=== PATIENT | female | born 1970 | race Caucasian/White ===

== ENCOUNTER 2016-09-14 14:37 | Inpatient (IN) | payer OTHER ==
[~2016-09-14] VITALS: Ht 167.6 cm; Wt 101.6 kg
[2016-09-14 14:42] VITALS: BP 186/98; PULSE 88; RESP 12; TEMP 97.7; O2SAT 97
--- NOTE | 2016-09-14 16:07 | RADRPT ---
EXAM DATE/TIME: 09/14/2016 15:50 [place] COMPARISON: No previous studies available for comparison. INDICATIONS : Chest pains mid sternal for an hour (today) with left arm numbness and tingling. MEDICAL HISTORY : None. SURGICAL HISTORY : None. ENCOUNTER: Initial ACUITY: 1 day PAIN SCORE: 10/10 LOCATION: Bilateral chest FINDINGS: Portable AP view of the chest demonstrates a normal-sized cardiac silhouette. No effusion, consolidat ion, or pneumothorax is visualized. The bones and soft tissues demonstrate no acute abnormality. CONCLUSION: No acute cardiopulmonary abnormality is identified. Renan Yen MD on September 14, 2016 at 16:05 Board Certified Radiologist. This report was verified electronically.
[2016-09-14 16:32] LABS: AUTOMATED NEUTROPHIL # 8.7 TH/MM3 (1.8-7.7); BASOPHIL # 0.1 TH/MM3 (0-0.2); BASOPHIL % 0.6 % (0.0-2.0); EOSINOPHIL # 0.3 TH/MM3 (0-0.4); EOSINOPHIL % 2.8 % (0.0-4.0); HEMATOCRIT 37.9 % (35.0-46.0); HEMO FLAGS DIFF FINAL; LYMPH % 20.8 % (9.0-44.0); LYMPHOCYTE # 2.6 TH/MM3 (1.0-4.8); MEAN CELL VOLUME 80.6 FL (80.0-100.0); MEAN CORPUSCULAR HEMOGLOBIN 26.6 PG (27.0-34.0); MONO % 6.6 % (0.0-8.0); NEUT % 69.2 % (16.0-70.0); PLATELET COUNT 323 TH/MM3 (150-450); RED CELL DISTRIBUTION WIDTH 14.6 % (11.6-17.2); WHITE BLOOD COUNT 12.6 TH/MM3 (4.0-11.0)
[2016-09-14 17:07] LABS: ANION GAP 6 MEQ/L (5-15); BICARBONATE 28.7 MEQ/L (21.0-32.0); BLOOD UREA NITROGEN 14 MG/DL (7-18); CHLORIDE 102 MEQ/L (98-107); GLOMERULAR FILTRATION RATE 74 ML/MIN (>89); SODIUM (NA) 137 MEQ/L (136-145)
[2016-09-14 17:16] LABS: CREATINE KINASE 155 U/L (26-192)
[2016-09-14 17:17] LABS: POTASSIUM 3.8 MEQ/L (3.5-5.1)
[2016-09-14 18:32] VITALS: BP 188/87; PULSE 87; RESP 16; O2SAT 98
--- NOTE | 2016-09-14 18:37 | PD ---
HPI Chief Complaint: Chest Pain Time Seen by Provider: 18:37 Travel History International Travel<30 days: No Contact w/Intl Traveler<30days: No Traveled to known affect area: No History of Present Illness HPI 46-year-old female with no significant medical history, presents to emergency department for evaluation of substernal chest pain, acute onset, sharp, cramp- like, tight feeling greater on the left than right with associated left arm numbness. This occurred following lunch with her boss when she got up to walk. She states that there was no nausea or vomiting associated with it. She did not experience any diaphoresis. She felt slightly lightheaded and like she did not want to walk anywhere. Currently she is pain-free. Denies any shortness of breath. No recent illnesses, fever, or chills. Patient states she is typically not hypertensive however her blood pressure has been elevated here in the emergency department. She has no other symptoms reported this time. PFSH Past Medical History Medical History: Denies Significant Hx ?: Not LMP: 09/06/16 Past Surgical History Surgical History: No Previous Surgery Social History Alcohol Use: No Tobacco Use: No Substance Use: No Allergies-Medications (Allergen,Severity, Reaction): Coded Allergies: No Known Allergies (Unverified , 09/14/16) Reported Meds & Prescriptions Reported Meds & Active Scripts Active No Active Prescriptions or Reported Medications Review of Systems Except as stated in HPI: all other systems reviewed are Neg Physical Exam Narrative GENERAL: Well-nourished, well-developed female patient, lying in bed, in no acute distress SKIN: Warm and dry. HEAD: Normocephalic. Atraumatic EYES: No scleral icterus. No injection or drainage. NECK: Supple, trachea midline. No JVD or lymphadenopathy. CARDIOVASCULAR: Regular rate and rhythm without murmurs, gallops, or rubs. RESPIRATORY: Breath sounds equal bilaterally. No accessory muscle use. Abdomen: Abdomen soft, non-tender, nondistended. Positive bowel sounds. No hepato-splenomegaly, or palpable masses. No guarding. MUSCULOSKELETAL: No cyanosis, or edema. Distal pulses are palpable. Cap refill is within normal limits. BACK: Nontender without obvious deformity. No CVA tenderness. Data Data Last Documented VS Vital Signs Date Time Temp Pulse Resp B/P Pulse Ox O2 Delivery O2 Flow Rate FiO2 09/14/16 18:32 87 16 188/87 98 Room Air 09/14/16 18:32 2 09/14/16 14:42 97.7 Orders Electrocardiogram (09/14/16 15:24) Complete Blood Count With Diff (09/14/16 15:24) Basic Metabolic Panel (Bmp) (09/14/16 15:24) Ckmb (Isoenzyme) Profile (09/14/16 15:24) Troponin I (09/14/16 15:24) Chest, Single Ap (09/14/16 15:24) Iv Access Insert/Monitor (09/14/16 15:24) Ecg Monitoring (09/14/16 15:24) Oxygen Administration (09/14/16 15:24) Oximetry (09/14/16 15:24) CKMB (09/14/16 15:50) CKMB% (09/14/16 15:50) Aspirin Chew (Aspirin Chew) (09/14/16 18:45) Electrocardiogram (09/14/16 ) Troponin I (09/14/16 18:37) Ckmb (Isoenzyme) Profile (09/14/16 18:37) Admit To Inpatient (09/14/16 ) Vital Signs (Adult) Q4H (09/14/16 18:43) Bedside Glucose GENE.AC&HS (09/14/16 18:43) ^ Child Care Development Specialist / Telemetry .CONTINUOUS (09/14/16 18:43) Intake + Output GENE.QSHIFT (09/14/16 18:43) Diet Heart Healthy (09/14/16 Dinner) Sodium Chloride 0.9% Flush (Ns Flush) (09/14/16 18:45) Sodium Chloride 0.9% Flush (Ns Flush) (09/14/16 21:00) Acetaminophen (Tylenol) (09/14/16 18:45) Ondansetron Inj (Zofran Inj) (09/14/16 18:45) Prochlorperazine Supp (Compazine Supp) (09/14/16 18:45) Bisacodyl Supp (Dulcolax Supp) (09/14/16 18:45) Magnesium Hydroxide Liq (Milk Of Magnesi (09/14/16 18:45) Sennosides (Senokot) (09/14/16 18:45) Basic Metabolic Panel (Bmp) (09/15/16 06:00) Complete Blood Count With Diff (09/15/16 06:00) Troponin I (09/15/16 00:43) Electrocardiogram (09/14/16 19:00) Resp Oxygen Anupam C Titrat 1-4 L (09/14/16 ) Pt Request For Service (09/14/16 18:43) Case Management Consult (09/14/16 18:43) Scd Bilateral/Knee High GENE.BID (09/14/16 18:43) Ebenezer Bilateral/Knee High GENE.QSHIFT (09/14/16 18:43) Inpatient Certification (09/14/16 ) Heparin Infusion GENE.Q1H (09/14/16 18:49) Heparin Inj (Heparin Inj) (09/14/16 19:00) Heparin Inj (Heparin Inj) (09/15/16 01:00) Heparin Inj (Heparin Inj) (09/15/16 01:00) Heparin-D5w Inj (Heparin-D5w Inj) (09/14/16 19:00) Act Partial Throm Time (Ptt) (09/14/16 18:49) Prothrombin Time / Inr (Pt) (09/14/16 18:49) Cbc No Diff, Includes Plts (09/14/16 18:49) Cbc No Diff, Includes Plts (09/17/16 06:00) Act Partial Throm Time (Ptt) (09/15/16 01:49) Occult Blood (Hemoccult) Stool (09/14/16 18:49) Admit Order (Ed Use Only) (09/14/16 18:52) CKMB (09/14/16 18:40) CKMB% (09/14/16 18:40) Labs Laboratory Tests Test 09/14/16 09/14/16 15:50 18:40 White Blood Count 12.6 TH/MM3 Red Blood Count 4.70 MIL/MM3 Hemoglobin 12.5 GM/DL Hematocrit 37.9 % Mean Corpuscular Volume 80.6 FL Mean Corpuscular Hemoglobin 26.6 PG Mean Corpuscular Hemoglobin 33.0 % Concent Red Cell Distribution Width 14.6 % Platelet Count 323 TH/MM3 Mean Platelet Volume 9.9 FL Neutrophils (%) (Auto) 69.2 % Lymphocytes (%) (Auto) 20.8 % Monocytes (%) (Auto) 6.6 % Eosinophils (%) (Auto) 2.8 % Basophils (%) (Auto) 0.6 % Neutrophils # (Auto) 8.7 TH/MM3 Lymphocytes # (Auto) 2.6 TH/MM3 Monocytes # (Auto) 0.8 TH/MM3 Eosinophils # (Auto) 0.3 TH/MM3 Basophils # (Auto) 0.1 TH/MM3 CBC Comment DIFF FINAL Differential Comment Prothrombin Time 10.6 SEC Prothromb Time International 1.0 RATIO Ratio Activated Partial 26.2 SEC Thromboplast Time Sodium Level 137 MEQ/L Potassium Level 3.8 MEQ/L Chloride Level 102 MEQ/L Carbon Dioxide Level 28.7 MEQ/L Anion Gap 6 MEQ/L Blood Urea Nitrogen 14 MG/DL Creatinine 0.83 MG/DL Estimat Glomerular Filtration 74 ML/MIN Rate Random Glucose 86 MG/DL Calcium Level 9.0 MG/DL Total Creatine Kinase 155 U/L 195 U/L Creatine Kinase MB 2.0 NG/ML 5.2 NG/ML Troponin I 0.25 NG/ML 1.93 NG/ML Creatine Kinase MB % 2.7 % MDM Medical Decision Making Medical Screen Exam Complete: Yes Emergency Medical Condition: Yes Medical Record Reviewed: Yes Differential Diagnosis ACS, NSTEMI versus STEMI versus pleuritic pain versus costochondritis versus chest wall pain Narrative Course 46-year-old female presents to emergency department for evaluation of chest pain. At this time at 1830 at the time of my assessment, patient is pain-free. Chest pain protocol was initiated and the triage area. EKG was reviewed initially at [address] elevation or depression. It was normal sinus rhythm. CBC resulted mild leukocytosis of 12.6. BMP is without acute concern. Troponin is elevated 0.25. This resulted in the patient being moved to a medical bed. Repeat EKG at 1836 is reviewed by my attending physician Dr. Hui. It is also normal sinus rhythm with no significant ST elevation or depression. Repeat troponin and CK-MB is ordered. A call has been placed to medical team for admission. I spoke with Dr. Wall. Pt will be started on heparin drip and admitted to service. 1939 Repeat troponin is 1.[address] Smith. She is aware. Pt remains hypertensive, but otherwise pain free. Diagnosis Primary Impression: NSTEMI (non-ST elevated myocardial infarction) Additional Impression: Hypertension Qualified Code: I10 - Essential hypertension Admitting Information Admitting Physician Requests: Admit Scripts No Active Prescriptions or Reported Meds Condition: Katya Zuñiga Sep 14, 2016 18:37
[2016-09-14] MEDS ORDERED: SENNOSIDES 8.6 MG TAB PO PRN (18:45)
[2016-09-14] MEDS ORDERED: PROCHLORPERAZINE 25 MG SUPP PR PRN (18:45)
[2016-09-14] MEDS ORDERED: ASPIRIN 81 MG CHEW TAB CHEW ONE (18:45)
[2016-09-14] MEDS ORDERED: BISACODYL 10 MG SUPP PR PRN (18:45)
[2016-09-14] MEDS ORDERED: MAGNESIUM HYDROXIDE SUSP 30 ML CUP PO PRN (18:45)
[2016-09-14] MEDS ORDERED: SODIUM CHLORIDE 0.9% FLUSH 5 ML FLUSH FLUSH PRN (18:45)
[2016-09-14] MEDS ORDERED: ACETAMINOPHEN 325 MG TAB PO PRN (18:45)
[2016-09-14] MEDS ORDERED: ONDANSETRON HCL 4 MG/2 ML VIAL IVP PRN (18:45)
[2016-09-14] MEDS ORDERED: HEPARIN-D5W INJ 250 ML IV SCH (19:00)
[2016-09-14] MEDS ORDERED: HEPARIN SODIUM - IV 10,000 UNITS/10 ML VIAL IV ONE (19:00)
[2016-09-14] MEDS ORDERED: METOPROLOL TARTRATE 25 MG TAB PO ONE (19:00)
[2016-09-14 19:06] LABS: APTT (PATIENT) 26.2 SEC (24.3-30.1); PROTHROMBIN TIME - PATIENT 10.6 SEC (9.8-11.6)
[2016-09-14 19:39] LABS: CKMB 5.2 NG/ML (0.5-3.6)
[2016-09-14 19:59] VITALS: BP 198/92; PULSE 82; RESP 16; O2SAT 98
[2016-09-14 20:01] LABS: MEAN CELL VOLUME 80.8 FL (80.0-100.0); MEAN CORPUSCULAR HGB CONC 33.4 % (32.0-36.0); PLATELET COUNT 340 TH/MM3 (150-450); RED BLOOD COUNT 4.83 MIL/MM3 (4.00-5.30); RED CELL DISTRIBUTION WIDTH 14.7 % (11.6-17.2); REVIEW FLAG FINAL; WHITE BLOOD COUNT 12.1 TH/MM3 (4.0-11.0)
[2016-09-14 20:12] LABS: APTT (PATIENT) 25.9 SEC (24.3-30.1)
[2016-09-14 20:20] VITALS: BP 165/79
[2016-09-14] MEDS: SODIUM CHLORIDE 0.9% FLUSH 5 ML FLUSH FLUSH SCH (20:57)
[2016-09-15] VITALS (10 sets, daily range): BP systolic 138–189; BP diastolic 68–99; PULSE 70–90; RESP 16–18; TEMP 98.1–98.6; O2SAT 94–99
--- NOTE | 2016-09-15 00:33 | HHI.HP ---
[facility] Unknown Admission Diagnosis NSTEMI Diagnoses: (1) NSTEMI (non-ST elevated myocardial infarction) (2) Hypertensive urgency (3) Leukocytosis Chief Complaint: Chest pain and left arm pain and hand numbness Travel History International Travel<30 Days: No Contact w/Intl Traveler <30 Da: No Traveled to Known Affected Are: No History of Present Illness Mrs. Banda is a 46-year-old female with a history of restless leg syndrome and asthma with last exacerbation occurring in childhood who presents to emergency department for evaluation of substernal chest pain and left arm paresthesia. Initial Troponin I was 0.25, second Troponin I was 1.93. TCK - 195, CK-MB - 5.2 increased, CK-MB % within normal parameters - 2.7. Nonspecific T wave are noted in EKGs personally reviewed by me. The patient is admitted for NSTEMI. Patient reports that she experienced severe chest pain while sitting down and have lunch at work. It started as a dull ache in the center of her chest and got stronger and then eased off. Symptoms were accompanied by left arm pain and left hand numbness. She denies any nausea or vomiting, diaphoresis, or shortness of breath with this. She denies any recent fatigue, exertional shortness of breath, or or calf pain. Symptoms spontaneously resolved by the time she was in the emergency room without any intervention. She denies any family history of coronary artery disease. She denies any history of hypertension, diabetes mellitus, coronary artery disease, liver or kidney disease, thyroid disease, cancer, or seizures. She is a nonsmoker. . Review of Systems Constitutional: DENIES: Fatigue, Fever Respiratory: DENIES: Cough, Shortness of breath Cardiovascular: COMPLAINS OF: Chest pain, DENIES: Dyspnea on Exertion, Lower Extremity Edema Gastrointestinal: DENIES: Black stools, Bloody stools, Nausea, Vomiting Genitourinary: DENIES: Hematuria, Dysuria Musculoskeletal: DENIES: Muscle aches Neurologic: COMPLAINS OF: Paresthesias, DENIES: Localized weakness, Seizures Other All systems reviewed and are otherwise negative. . Past Family Social History Past Medical History Asthma with no symptoms since childhood Restless leg syndrome Gestation Hypertension . Past Surgical History C Section x 2 . Reported Medications Reported Meds & Active Scripts Active No Active Prescriptions or Reported Medications Allergies: Coded Allergies: No Known Allergies (Unverified , 09/14/16) Active Ordered Medications Current Medications Aspirin (Aspirin Chew) 162 mg ONCE ONCE CHEW Last administered on 09/14/16t 18 :43; Start 09/14/16 at 18:45; Stop 09/14/16 at 18:46; Status DC IV Flush (NS Flush) 2 ml UNSCH PRN FLUSH FLUSH AFTER USING IV ACCESS; Start 06/21 at 18:45 IV Flush (NS Flush) 2 ml BID FLUSH ; Start 09/14/16 at 21:00 Acetaminophen (Tylenol) 650 mg Q4H PRN PO TEMP > 100.4; Start 09/14/16 at 18:45 Ondansetron HCl (Zofran Inj) 4 mg Q6H PRN IVP NAUSEA OR VOMITING; Start at 18:45 Prochlorperazine (Compazine Supp) 25 mg Q12H PRN [place] NAUSEA OR VOMITING; Start 09/14/16 at 18:45 Bisacodyl (Dulcolax Supp) 10 mg DAILY PRN [place] CONSTIPATION; Start 09/14/16 at 18 :45 Magnesium Hydroxide (Milk Of Magnesia Liq) 30 ml Q12H PRN PO CONSTIPATION; Start 09/14/16 at 18:45 Sennosides (Senokot) 17.2 mg Q12H PRN PO CONSTIPATION; Start 09/14/16 at 18:45 Heparin Sodium (Porcine) (Heparin Inj) 4,000 units ONCE ONCE IV Last administered on 09/14/16t 19:23; Start 09/14/16 at 19:00; Stop 09/14/16 at 19:01 ; Status DC Heparin Sodium (Porcine) (Heparin Inj) 5,000 units UNSCH PRN IV APTT LESS THAN 25; Start 09/15/16 at 01:00 Heparin Sodium (Porcine) 2500 units 2,500 units UNSCH PRN IV APTT 25 TO 39; Start 09/15/16 at 01:00 Heparin Sodium/ Dextrose (Heparin-D5W Inj) 250 ml @ 0 mls/hr TITRATE IV Last administered on 09/14/16 19:24; Start 09/14/16 at 19:00 Metoprolol Tartrate (Lopressor) 25 mg ONCE ONCE PO Last administered on 19:23; Start 09/14/16 at 19:00; Stop 09/14/16 at 19:01; Status DC Aspirin (Ecotrin Ec) 325 mg DAILY PO ; Start 09/15/16 at 09:00 Family History Father with abdominal and thoracic aortic aneurysms Mother with hypertension Denies family history of CAD . 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 Physical Exam Vital Signs Vital Signs Date Time Temp Pulse Resp B/P Pulse Ox O2 Delivery O2 Flow Rate FiO2 09/14/16 20:20 165/79 09/14/16 19:59 82 16 198/92 98 Room Air 09/14/16 18:32 87 16 188/87 98 Room Air 09/14/16 18:32 97 Nasal Cannula 2 09/14/16 14:42 97.7 88 12 186/98 97 Room Air Physical Exam GENERAL: This is a well-developed female patient, in no apparent distress. SKIN: No rashes, ecchymoses or lesions. Cool and dry. HEAD: Atraumatic. Normocephalic. EYES: No scleral icterus. No injection or drainage. ENT: Nose without bleeding, purulent drainage. NECK: Trachea midline. No JVD or lymphadenopathy. CARDIOVASCULAR: Regular rate and rhythm without murmurs, gallops, or rubs. RESPIRATORY: Clear to auscultation. Breath sounds equal bilaterally. No wheezes , rales, or rhonchi. GASTROINTESTINAL: Abdomen soft, non-tender, nondistended. No guarding. MUSCULOSKELETAL: Extremities without clubbing, cyanosis, or edema. No calf tenderness. NEUROLOGICAL: Awake and alert. Motor and sensory grossly within normal limits. Normal speech. . Laboratory Laboratory Tests Test 09/14/16 09/14/16 09/14/16 15:50 18:40 19:00 White Blood Count 12.6 12.1 Red Blood Count 4.70 4.83 Hemoglobin 12.5 13.0 Hematocrit 37.9 39.0 Mean Corpuscular Volume 80.6 80.8 Mean Corpuscular Hemoglobin 26.6 27.0 Mean Corpuscular Hemoglobin 33.0 33.4 Concent Red Cell Distribution Width 14.6 14.7 Platelet Count 323 340 Mean Platelet Volume 9.9 9.8 Neutrophils (%) (Auto) 69.2 Lymphocytes (%) (Auto) 20.8 Monocytes (%) (Auto) 6.6 Eosinophils (%) (Auto) 2.8 Basophils (%) (Auto) 0.6 Neutrophils # (Auto) 8.7 Lymphocytes # (Auto) 2.6 Monocytes # (Auto) 0.8 Eosinophils # (Auto) 0.3 Basophils # (Auto) 0.1 CBC Comment DIFF FINAL Differential Comment Prothrombin Time 10.6 Prothromb Time International 1.0 Ratio Activated Partial 26.2 25.9 Thromboplast Time Sodium Level 137 Potassium Level 3.8 Chloride Level 102 Carbon Dioxide Level 28.7 Anion Gap 6 Blood Urea Nitrogen 14 Creatinine 0.83 Estimat Glomerular Filtration 74 Rate Random Glucose 86 Calcium Level 9.0 Total Creatine Kinase 155 195 Creatine Kinase MB 2.0 5.2 Troponin I 0.25 1.93 Creatine Kinase MB % 2.7 Result Diagram: 09/14/16 1900 09/14/16 1550 Imaging Last Impressions Chest X-Ray 09/14/16 1524 Signed Impressions: Service Date/Time: Wednesday, September 14, 2016 15:50 - CONCLUSION: No acute cardiopulmonary abnormality is identified. Renan Yen MD . Assessment and Plan Problem List: (1) NSTEMI (non-ST elevated myocardial infarction) ICD Code: I21.4 Status: Acute (2) Hypertensive urgency ICD Code: I16.0 Status: Acute (3) Leukocytosis ICD Code: D72.829 Status: Acute Assessment and Plan NSTEMI - Initial Troponin I 0.25, second troponin I 1.93 - TCK - 195, CK-MB - 5.2 increased, CK-MB % within normal parameters - 2.7 - Nonspecific twave changes - Heparin drip - Aspirin 325 mg p.o. daily Leukocytosis likely secondary to stress response - WBC is 12.6 on admission - recheck CBC in a.m. Hypertensive Urgency - Initial BP 186/98 decreased following Metoprolol 25 mg p.o. given in ER - will monitor trends in BP readings and treat as indicated DVT prophylaxis - currently on Heparin gtt Written by Dena Almodovar, acting as scribe for Dr. Smith on 09/15/16 at 00:33. The documentation accurately reflects the work performed [id number] by me on [id number] Discussed Condition With Dr. Wall and RN . Physician Certification 2 Midnight Certification Type: Admission for Inpatient Services Order for Inpatient Services The services are ordered in accordance with Medicare regulations or non- Medicare payer requirements, as applicable. In the case of services not specified as inpatient-only, they are appropriately provided as inpatient services in accordance with the 2-midnight benchmark. Estimated LOS (days): 3 days is the estimated time the patient will need to remain in the hospital, assuming treatment plan goals are met and no additional complications. Post-Hospital Plan: Home Dena Almodovar Sep 15, 2016 00:33 Erlinda Smith MD Sep 16, 2016 08:27
[2016-09-15 00:55] LABS: APTT (PATIENT) 28.9 SEC (24.3-30.1)
[2016-09-15] MEDS ORDERED: HEPARIN SODIUM - IV 10,000 UNITS/10 ML VIAL IV PRN ×2 (01:00)
[2016-09-15 05:54] LABS: AUTOMATED NEUTROPHIL # 5.9 TH/MM3 (1.8-7.7); BASOPHIL # 0.1 TH/MM3 (0-0.2); BASOPHIL % 0.6 % (0.0-2.0); EOSINOPHIL # 0.5 TH/MM3 (0-0.4); EOSINOPHIL % 4.6 % (0.0-4.0); HEMATOCRIT 37.9 % (35.0-46.0); HEMO FLAGS DIFF FINAL; LYMPH % 27.9 % (9.0-44.0); LYMPHOCYTE # 2.8 TH/MM3 (1.0-4.8); MEAN CELL VOLUME 80.3 FL (80.0-100.0); MEAN CORPUSCULAR HEMOGLOBIN 26.6 PG (27.0-34.0); MEAN CORPUSCULAR HGB CONC 33.1 % (32.0-36.0); MONO % 7.7 % (0.0-8.0); NEUT % 59.2 % (16.0-70.0); PLATELET COUNT 275 TH/MM3 (150-450); RED BLOOD COUNT 4.72 MIL/MM3 (4.00-5.30); RED CELL DISTRIBUTION WIDTH 14.4 % (11.6-17.2); WHITE BLOOD COUNT 9.9 TH/MM3 (4.0-11.0)
[2016-09-15 06:19] LABS: BICARBONATE 25.9 MEQ/L (21.0-32.0)
[2016-09-15 06:23] LABS: POTASSIUM 4.1 MEQ/L (3.5-5.1)
[2016-09-15 07:21] LABS: APTT (PATIENT) 39.1 SEC (24.3-30.1)
[2016-09-15] MEDS: SODIUM CHLORIDE 0.9% FLUSH 5 ML FLUSH FLUSH SCH (08:55)
[2016-09-15] MEDS ORDERED: ASPIRIN EC 325 MG TABEC PO SCH (09:00)
--- NOTE | 2016-09-15 11:21 | EKG ---
Date Performed: 09/15/2016 Time Performed: 00:36:04 PTAGE: 46 years EKG: Sinus rhythm NONSPECIFIC T-WAVE ABNORMALITY BORDERLINE ECG PREVIOUS TRACING : 09/14/2016 18.36 Compared to prior tracing no significant change DOCTOR: Galen Rubin Interpretating Date/Time 09/15/2016 11:20:49
[2016-09-15 12:08] LABS: BETA HCG QUANT LESS THAN 1 MIU/ML (0-5)
[2016-09-15] MEDS ORDERED: HEPARIN-NS/PF INJ 500 ML ONE (13:31)
[2016-09-15] MEDS ORDERED: HEPARIN SODIUM - IV 10,000 UNITS/10 ML VIAL ONE ×2 (14:21→14:42)
--- NOTE | 2016-09-15 14:35 | MB ---
cc: [facility] M.D. DATE OF CONSULTATION: 09/15/2016 HISTORY OF PRESENT ILLNESS Sydnee is a very pleasant 46-year-old lady with a significant past medical history for coronary artery disease. She developed moderate to severe substernal chest pain yesterday, came to the emergency room, was found to be hypertensive with systolic blood pressure of 188, ruled in for myocardial infarction with elevated troponin. Currently she is resting comfortably in no acute distress. Denies any chest pain, fever, chills, cough, GI or bleeding, PND, orthopnea, syncope or dizziness. Also notes she had left arm numbness associated with it, cramp-like chest pain. PAST MEDICAL HISTORY Per history of present illness. SOCIAL HISTORY Denies tobacco or alcohol use. ALLERGIES None. MEDICATIONS Medications in the hospital: 1. Aspirin 325. 2. IV heparin. PHYSICAL EXAMINATION VITAL SIGNS: Blood pressure 151/80, pulse 77, respiratory rate 18. GENERAL: She is alert and oriented x3, in no acute distress. NECK: Supple. No JVD. No bruit. CARDIOVASCULAR: S1, S2. No murmurs, rubs or gallops. LUNGS: Clear to auscultation bilaterally. ABDOMEN: Soft, nontender, nondistended. Positive bowel sounds. EXTREMITIES: No lower extremity edema. LABORATORY DATA Initial white count was 12.6. Subsequent white count 9.9, hemoglobin 12.5, hematocrit 37.9, platelet count 275. INR is 1.0. PTT today at 5:55 a.m. is 39.1. Sodium 140, potassium 4.1, chloride 104, bicarb 25.9, BUN 12, creatinine 0.74. HCG less than 1. Initial troponin 0.25 followed by 1.93 followed by 1.64. EKG DATA EKG: Normal sinus rhythm at 72 beats per minute, T-wave inversion in leads III and aVF. IMAGING DATA Chest x-ray: No acute cardiopulmonary abnormality is identified. DIAGNOSIS 1. Non-STEMI. 2. Hypertension. 3. Elevated white count. DISCUSSION Based on the non-STEMI urgent left heart catheterization is medically necessary. I explained to the patient the risks of cath and PCI is 5-10% chance of , stroke, heart attack, bleeding, infection, need for emergency bypass, need for emergency surgery, need for dialysis, need for blood transfusion, anaphylaxis, arrhythmia, and infection. The patient understands and consents to proceed. MD WAYNE Hood/JAY /2:03 PM /2:12 PM
[2016-09-15] MEDS ORDERED: MISC INFORMATION XX ONE (14:45)
[2016-09-15] MEDS ORDERED: SODIUM CHLORIDE 0.9% FLUSH 5 ML FLUSH IVF PRN (14:45)
[2016-09-15] MEDS ORDERED: amLODIPine BESYLATE 5 MG TAB PO ONE (15:00)
[2016-09-15] MEDS ORDERED: IOHEXOL 350 MG/ML 100 ML BTL (for Cath Lab) OTHER ONE (15:12)
[2016-09-15] MEDS ORDERED: CLOPIDOGREL 300 MG TAB PO ONE (15:30)
[2016-09-15] MEDS ORDERED: PILL SPLITTER OTHER PRN (15:30)
--- NOTE | 2016-09-15 20:10 | MA ---
cc: [facility] M.D. DATE: 09/15/2016 PROCEDURE PERFORMED: Left heart catheterization, left ventriculography, coronary angiography, FFR of the ostial proximal right coronary artery. INDICATIONS: Non-STEMI, coronary artery disease, hypertension. PROCEDURE: The patient was brought to the Cardiac Catheterization Laboratory, prepped and draped in the usual sterile fashion. 10 cc of 1% lidocaine was used to locally anesthetize the right common femoral artery. A 4-Burkinan sheath was successfully placed in the right common femoral artery. 4-Burkinan JR4 and JL4 catheters were used to perform left and right coronary angiography and left ventriculography. FINDINGS: LV pressures: 150/3-5. Ejection fraction is 75%. HYPERDYNAMIC FUNCTION: The right coronary artery is large and dominant. It has an ostial 70% stenosis. This improves to approximately 60% stenosis after 200 micrograms of intracoronary nitroglycerin. The vessel is probably a 4-0 vessel beyond the ostium in the proximal mid segment. Otherwise there is no significant obstructive disease. The left main coronary artery no significant disease angiographically. The left circumflex has no significant disease angiographically. It is a tortuous vessel. The first obtuse marginal vessel is a large tortuous vessel which bifurcates and has no significant disease angiographically. The LAD is transapical. No significant disease angiographically. Tortuous in the mid to distal segment. The first diagonal artery is a medium size vessel, tortuous, no significant disease angiographically. INTERVENTION: The 4-Burkinan sheath was exchanged for the 6-Burkinan sheath, 70 inch per kilo of heparin was given. ACT was 220. A 6-Burkinan JR-4 guide and 0.014 pressure guidewire were placed into the aortic root as the lesion was in the ostium of the right coronary artery. Pressures were normalized. Then the JR4 guide was placed into the ostium of the right coronary artery, pressure wire was passed beyond the lesion and to the distal RCA. IFR was 0.93. The patient was then infused with 140 micrograms per kg per minute of adenosine for three minutes. FFR was 0.87. Adenosine did reproduce the patient's symptoms of chest pain that she had yesterday, however, she said it was "much milder." CONCLUSIONS: 1. Non-STEMI. Culprit 70% ostial right coronary artery stenosis with partial relief of stenosis with 200 micrograms of intracoronary nitroglycerin 55 to 60%, FFR of 0.87, suspect the context of hypertension and spasm that this clearly led to her troponin elevation. Otherwise no significant coronary disease in the right-dominant system. 2. Hyperdynamic LV systolic function with low LVEDP consistent with hypovolemia. RECOMMENDATIONS: 1. Recommend medical management for coronary artery disease. 2. Risk factor modification. 3. Recommend normal saline, one liter bolus given the hypovolemia. 4. Will treat with aspirin, statin, Norvasc for vasospasm. MD WAYNE Hood/COREY /2:42 PM /9:01 AM
[2016-09-15] MEDS ORDERED: ATORVASTATIN 10 MG TAB PO SCH (21:00)
[2016-09-15] MEDS ORDERED: SODIUM CHLORIDE 0.9% FLUSH 5 ML FLUSH IVF SCH (21:00)
[2016-09-15] MEDS: CARVEDILOL 3.125 MG TAB PO SCH (21:34)
--- NOTE | 2016-09-15 22:38 | EKG ---
Date Performed: 09/14/2016 Time Performed: 18:36:39 PTAGE: 46 years EKG: Sinus rhythm NONSPECIFIC T-WAVE ABNORMALITY BORDERLINE ECG NO PREVIOUS TRACING DOCTOR: Galen Rubin Interpretating Date/Time 09/15/2016 22:35:33
--- NOTE | 2016-09-15 22:41 | EKG ---
Date Performed: 09/14/2016 Time Performed: 16:14:47 PTAGE: 46 years EKG: Sinus rhythm NORMAL ECG NO PREVIOUS TRACING DOCTOR: Galen Rubin Interpretating Date/Time 09/15/2016 22:38:25
[2016-09-16] VITALS (11 sets, daily range): BP systolic 126–154; BP diastolic 72–91; PULSE 67–81; RESP 16–20; TEMP 97.8–98.7; O2SAT 96–98
[2016-09-16 05:20] LABS: AUTOMATED NEUTROPHIL # 8.9 TH/MM3 (1.8-7.7); BASOPHIL % 0.4 % (0.0-2.0); EOSINOPHIL # 0.2 TH/MM3 (0-0.4); HEMATOCRIT 37.9 % (35.0-46.0); HEMO FLAGS DIFF FINAL; LYMPH % 17.5 % (9.0-44.0); LYMPHOCYTE # 2.1 TH/MM3 (1.0-4.8); MEAN CELL VOLUME 80.7 FL (80.0-100.0); MEAN CORPUSCULAR HEMOGLOBIN 26.3 PG (27.0-34.0); MEAN CORPUSCULAR HGB CONC 32.6 % (32.0-36.0); NEUT % 74.1 % (16.0-70.0); PLATELET COUNT 290 TH/MM3 (150-450); RED BLOOD COUNT 4.69 MIL/MM3 (4.00-5.30); RED CELL DISTRIBUTION WIDTH 14.5 % (11.6-17.2)
[2016-09-16 05:33] LABS: BICARBONATE 26.2 MEQ/L (21.0-32.0); POTASSIUM 3.6 MEQ/L (3.5-5.1)
[2016-09-16 05:35] LABS: HDL CHOLESTEROL 49.7 MG/DL (40.0-60.0); INDIRECT BILIRUBIN 0.3 MG/DL (0.0-0.8); TOTAL BILIRUBIN ADULT 0.4 MG/DL (0.2-1.0)
[2016-09-16] MEDS ORDERED: CARV3.125 PO (07:25)
[2016-09-16] MEDS ORDERED: AMLO5 PO (07:25)
[2016-09-16] MEDS ORDERED: LIPI10TA PO (07:25)
[2016-09-16] MEDS ORDERED: RAMI2.5C PO (07:25)
[2016-09-16] MEDS ORDERED: ASPI81CH CHEW (07:25)
--- NOTE | 2016-09-16 07:25 | HHI.DCPOC ---
Discharge Care Plan Goals to Promote Your Health * To prevent worsening of your condition and complications * To maintain your health at the optimal level Directions to Meet Your Goals Take your medications as prescribed Follow your dietary instruction Follow activity as directed Keep your appointments as scheduled Take your immunizations and boosters as scheduled If your symptoms worsen call your PCP, if no PCP go to Urgent Care Center or Emergency Room Smoking is Dangerous to Your Health. Avoid second hand smoke Call the 24-hour hour crisis hotline for domestic abuse at Cathie Wall MD Sep 16, 2016 07:25
[2016-09-16] MEDS ORDERED: RAMIPRIL 2.5 MG CAP PO SCH (09:00)
[2016-09-16] MEDS ORDERED: amLODIPine BESYLATE 5 MG TAB PO SCH (09:00)
[2016-09-16] MEDS ORDERED: ASPIRIN 81 MG CHEW TAB PO SCH (09:00)
[2016-09-16] MEDS ORDERED: CLOPIDOGREL 75 MG TAB PO SCH (09:00)
[2016-09-16] MEDS: CARVEDILOL 3.125 MG TAB PO SCH (09:51)
--- NOTE | 2016-09-16 10:51 | EKG ---
Date Performed: 09/15/2016 Time Performed: 15:47:46 PTAGE: 46 years EKG: Sinus rhythm Extensive T wave changes are nonspecific Borderline ECG PREVIOUS TRACING : 09/15/2016 00.36 Compared to prior tracing no significant change DOCTOR: Lai Rizo Interpretating Date/Time 09/16/2016 10:49:48
--- NOTE | 2016-09-16 11:55 | HHI.DS ---
Discharge Summary Admission Date Sep 14, 2016 at 18:53 Discharge Date: Sep 16, 2016 Admitting Diagnosis NSTEMI (1) NSTEMI (non-ST elevated myocardial infarction) ICD Code: I21.4 Diagnosis: Principal (2) Hypertensive urgency ICD Code: I16.0 Diagnosis: Principal (3) Leukocytosis ICD Code: D72.829 Diagnosis: Principal Procedures cardiac cath 09/15/16 Brief History - From Admission Mrs. Banda is a 46-year-old female with a history of restless leg syndrome and asthma with last exacerbation occurring in childhood who presents to emergency department for evaluation of substernal chest pain and left arm paresthesia. Initial Troponin I was 0.25, second Troponin I was 1.93. TCK - 195, CK-MB - 5.2 increased, CK-MB % within normal parameters - 2.7. Nonspecific T wave are noted in EKGs personally reviewed by me. The patient is admitted for NSTEMI. Patient reports that she experienced severe chest pain while sitting down and have lunch at work. It started as a dull ache in the center of her chest and got stronger and then eased off. Symptoms were accompanied by left arm pain and left hand numbness. She denies any nausea or vomiting, diaphoresis, or shortness of breath with this. She denies any recent fatigue, exertional shortness of breath, or or calf pain. Symptoms spontaneously resolved by the time she was in the emergency room without any intervention. She denies any family history of coronary artery disease. She denies any history of hypertension, diabetes mellitus, coronary artery disease, liver or kidney disease, thyroid disease, cancer, or seizures. She is a nonsmoker. . CBC/BMP: 09/16/16 0416 09/16/16 0416 Significant Findings Laboratory Tests Test 09/14/16 09/14/16 09/14/16 09/15/16 15:50 18:40 19:00 00:10 White Blood Count 12.6 TH/MM3 12.1 TH/MM3 (4.0-11.0) (4.0-11.0) Mean Corpuscular Hemoglobin 26.6 PG (27.0-34.0) Neutrophils # (Auto) 8.7 TH/MM3 (1.8-7.7) Estimat Glomerular Filtration 74 ML/MIN (>89) Rate Troponin I 0.25 NG/ML 1.93 NG/ML 1.64 NG/ML (0.02-0.05) (0.02-0.05) (0.02-0.05) Total Creatine Kinase 195 U/L (26-192) Creatine Kinase MB 5.2 NG/ML (0.5-3.6) Test 09/15/16 09/15/16 09/16/16 05:22 05:55 04:16 Mean Corpuscular Hemoglobin 26.6 PG 26.3 PG (27.0-34.0) (27.0-34.0) Eosinophils (%) (Auto) 4.6 % (0.0-4.0) Eosinophils # (Auto) 0.5 TH/MM3 (0-0.4) Estimat Glomerular Filtration 84 ML/MIN (>89) 88 ML/MIN (>89) Rate Activated Partial 39.1 SEC Thromboplast Time (24.3-30.1) White Blood Count 12.0 TH/MM3 (4.0-11.0) Neutrophils (%) (Auto) 74.1 % (16.0-70.0) Neutrophils # (Auto) 8.9 TH/MM3 (1.8-7.7) Alanine Aminotransferase 75 U/L (10-53) (ALT/SGPT) Albumin 3.3 GM/DL (3.4-5.0) Triglycerides Level 216 MG/DL (42-150) Imaging Last Impressions Chest X-Ray 09/14/16 1524 Signed Impressions: Service Date/Time: Wednesday, September 14, 2016 15:50 - CONCLUSION: No acute cardiopulmonary abnormality is identified. Renan Yen MD PE at Discharge GENERAL: This is a well-developed female patient, in no apparent distress. SKIN: No rashes, ecchymoses or lesions. Cool and dry. HEAD: Atraumatic. Normocephalic. EYES: No scleral icterus. No injection or drainage. ENT: Nose without bleeding, purulent drainage. NECK: Trachea midline. No JVD or lymphadenopathy. CARDIOVASCULAR: Regular rate and rhythm without murmurs, gallops, or rubs. RESPIRATORY: Clear to auscultation. Breath sounds equal bilaterally. No wheezes , rales, or rhonchi. GASTROINTESTINAL: Abdomen soft, non-tender, nondistended. No guarding. MUSCULOSKELETAL: Extremities without clubbing, cyanosis, or edema. No calf tenderness. NEUROLOGICAL: Awake and alert. Motor and sensory grossly within normal limits. Normal speech. Pt update on day of discharge Feesl much better. No chest madelin novernight. No n/v/d/c. Ambulatin without any problems. Right groin without hematoma. Hospital Course NSTEMI S/P cardiac cath by Dr Qureshi 09/15/16 ostial RCA stenosis with partial releaf with nitro. Hyperdynamic LV 2/2 hypovolemia, give IVF bolus Cardiology recommends medical management. Treat with ASA, statin , norvasc for vasospasm. Initial Troponin I 0.25, second troponin I 1.93 TCK - 195, CK-MB - 5.2 increased, CK-MB % within normal parameters - 2.7 Nonspecific twave changes Heparin drip . Aspirin 325 mg p.o. daily Leukocytosis likely secondary to stress response Hypertensive Urgency - Initial BP 186/98 at admission decreased following Metoprolol 25 mg p.o. given in ER - will monitor trends in BP readings and treat as indicated Treat with ASA, statin , norvasc for vasospasm Improved, cleared by cardiology for DC. To follow up as OP with PCP and consultants. Pt Condition on Discharge: Good Discharge Disposition: Discharge Home Discharge Time: <= 30 minutes Discharge Instructions DIET: Follow Instructions for: Heart Healthy Diet Activities you can perform: Regular-No Restrictions Follow up Referrals: Cardiology - 2 Weeks with Dylan Lozada MD PCP Follow-up - 3-5 Days New Medications: Aspirin (Aspirin) 81 Mg Chew 162 MG CHEW DAILY Blood Clot Prevention #30 Ref 0 TAB Amlodipine (Norvasc) 5 Mg Tab 2.5 MG PO DAILY Blood Pressure Management #30 TAB Atorvastatin (Lipitor) 10 Mg Tab 10 MG PO HS Cholesterol Management #30 TAB Carvedilol (Coreg) 3.125 Mg Tab 3.125 MG PO BID Blood Pressure Management #60 TAB Ramipril (Ramipril) 2.5 Mg Cap 2.5 MG PO DAILY Blood Pressure Management #30 CAP Cathie Wall MD Sep 16, 2016 11:55
--- NOTE | 2016-09-16 15:41 | PD.CARD.PN ---
Subjective Subjective Remarks alert in nad, denies chest pain Objective Vital Signs / I&O Vital Signs Date Time Temp Pulse Resp B/P Pulse Ox O2 Delivery O2 Flow Rate FiO2 09/16/16 11:37 98.7 73 16 126/76 98 09/16/16 11:00 74 09/16/16 08:09 72 18 153/91 96 09/16/16 08:00 97.8 72 18 153/91 97 09/16/16 06:00 69 09/16/16 05:00 70 09/16/16 04:00 75 09/16/16 04:00 98.6 75 20 136/72 97 09/16/16 03:00 98.5 69 20 145/76 98 09/16/16 03:00 69 09/16/16 02:00 67 09/16/16 01:00 81 09/16/16 00:00 98.6 72 18 154/75 96 09/16/16 00:00 72 09/15/16 23:00 72 09/15/16 23:00 98.6 72 18 154/99 09/15/16 22:00 70 09/15/16 21:00 72 09/15/16 20:00 72 09/15/16 20:00 98.1 72 18 156/94 94 09/15/16 19:00 98.4 77 18 189/81 94 09/15/16 19:00 77 I/O 09/15/16 09/15/16 09/15/16 09/16/16 09/16/16 09/16/16 07:00 15:00 23:00 07:00 15:00 23:00 Intake Total 240 ml Output Total 400 ml Balance -160 ml Intake Oral 240 ml Output Urine Total 400 ml # Voids 2 Laboratory GENERAL: SKIN: Warm and dry. HEAD: Normocephalic. EYES: No scleral icterus. No injection or drainage. NECK: Supple, trachea midline. No JVD or lymphadenopathy. CARDIOVASCULAR: Regular rate and rhythm without murmurs, gallops, or rubs. RESPIRATORY: Breath sounds equal bilaterally. No accessory muscle use. GASTROINTESTINAL: Abdomen soft, non-tender, nondistended. MUSCULOSKELETAL: No cyanosis, or edema. BACK: Nontender without obvious deformity. No CVA tenderness. Laboratory Tests Test 09/16/16 04:16 White Blood Count 12.0 TH/MM3 Red Blood Count 4.69 MIL/MM3 Hemoglobin 12.3 GM/DL Hematocrit 37.9 % Mean Corpuscular Volume 80.7 FL Mean Corpuscular Hemoglobin 26.3 PG Mean Corpuscular Hemoglobin 32.6 % Concent Red Cell Distribution Width 14.5 % Platelet Count 290 TH/MM3 Mean Platelet Volume 9.7 FL Neutrophils (%) (Auto) 74.1 % Lymphocytes (%) (Auto) 17.5 % Monocytes (%) (Auto) 6.0 % Eosinophils (%) (Auto) 2.0 % Basophils (%) (Auto) 0.4 % Neutrophils # (Auto) 8.9 TH/MM3 Lymphocytes # (Auto) 2.1 TH/MM3 Monocytes # (Auto) 0.7 TH/MM3 Eosinophils # (Auto) 0.2 TH/MM3 Basophils # (Auto) 0.0 TH/MM3 CBC Comment DIFF FINAL Differential Comment Sodium Level 141 MEQ/L Potassium Level 3.6 MEQ/L Chloride Level 107 MEQ/L Carbon Dioxide Level 26.2 MEQ/L Anion Gap 8 MEQ/L Blood Urea Nitrogen 9 MG/DL Creatinine 0.71 MG/DL Estimat Glomerular Filtration 88 ML/MIN Rate Random Glucose 98 MG/DL Calcium Level 8.7 MG/DL Total Bilirubin 0.4 MG/DL Direct Bilirubin 0.1 MG/DL Indirect Bilirubin 0.3 MG/DL Aspartate Amino Transf 35 U/L (AST/SGOT) Alanine Aminotransferase 75 U/L (ALT/SGPT) Alkaline Phosphatase 83 U/L Total Creatine Kinase 112 U/L Total Protein 7.4 GM/DL Albumin 3.3 GM/DL Triglycerides Level 216 MG/DL Cholesterol Level 169 MG/DL LDL Cholesterol 76 MG/DL HDL Cholesterol 49.7 MG/DL Cholesterol/HDL Ratio 3.40 RATIO Assessment and Plan Problem List: (1) Hypertension (2) NSTEMI (non-ST elevated myocardial infarction) (3) Hypertensive urgency (4) CAD (coronary artery disease) (5) Coronary artery spasm Assessment and Plan 1.) NSTEMI - culprit spasm/60% ostial rca stenosis, ffr=.87, assymptomatic, ok to dc from cv standpoint on aspirin, plavix, coreg, norvac, lipitor; f/u with me in office 09/17/16, d/w patient Problem Qualifiers (1) Hypertension: Qualified Code: I10 - Essential hypertension Dylan Lozada MD Sep 16, 2016 15:41
== END 2016-09-16 15:50 | disposition home or self-care (01) | DRG 282 ==
LOC: NEPE 14:37 → NEDA 18:53 → NEDH 22:53 → HCIS 09-15 18:47
PROVIDERS: ADMIT Hospitalist; ATTEND Hospitalist
PROC: 4A023N7 Measurement of Cardiac Sampling and Pressure, Left Heart, Percutaneous Approach (ICD-10-PCS; principal; 2016-09-15)
PROC: B2111ZZ Fluoroscopy of Multiple Coronary Arteries using Low Osmolar Contrast (ICD-10-PCS; 2016-09-15)
PROC: B2151ZZ Fluoroscopy of Left Heart using Low Osmolar Contrast (ICD-10-PCS; 2016-09-15)
PROC: 4A033BC Measurement of Arterial Pressure, Coronary, Percutaneous Approach (ICD-10-PCS; 2016-09-15)
DX: I21.4 Non-ST elevation (NSTEMI) myocardial infarction (principal); E86.1 Hypovolemia; I16.0 Hypertensive urgency; I10 Essential (primary) hypertension; D72.829 Elevated white blood cell count, unspecified; I25.111 Atherosclerotic heart disease of native coronary artery with angina pectoris with documented spasm; Z87.09 Personal history of other diseases of the respiratory system
CPT/HCPCS: 71010; 80048; 80061; 80076; 82550; 82552; 82948; 84484; 84702; 85002; 85025; 85027; 85347; 85610; 85730; 93005; 93458; 93571; C1769; C1887; C1893; J0153; J1644; Q9967